=== PATIENT | female | born 1960 | race Caucasian/White ===

== ENCOUNTER 2022-05-23 10:22 | Emergency (ER) | payer BC ==
[~2022-05-23] VITALS: Ht 172.7 cm; Wt 86.2 kg
[2022-05-23 10:32] VITALS: BP_SYST 139
[2022-05-23] MEDS ORDERED: CYCLOBENZAPRINE HCL 10 MG TABLET (FLEXERIL) PO ONE (14:30)
[2022-05-23] MEDS ORDERED: LIDOCAINE PATCH 5% 1 EA TP ONE (14:30)
[2022-05-23] MEDS ORDERED: LIDOCAINE PATCH 5% 1 EA TP SCH (14:30)
[2022-05-23] MEDS ORDERED: KETOROLAC TROMETHAMINE 30 MG VIAL IM ONE (14:30)
[2022-05-23] MEDS ORDERED: CYCL10TA24 PO (15:33)
[2022-05-23] MEDS ORDERED: LIDOINT TP (15:33)
[2022-05-23] MEDS ORDERED: NAPR-688 PO (15:33)
[2022-05-23 15:51] VITALS: BP_SYST 142
[2022-05-24] MEDS ORDERED: LIDOCAINE PATCH 5% 1 EA TP SCH (09:00)
== END 2022-05-23 15:53 | disposition home or self-care (01) ==
LOC: SED 10:22
DX: S16.1XXA Strain of muscle, fascia and tendon at neck level, initial encounter (principal); G44.86 Cervicogenic headache; Z88.5 Allergy status to narcotic agent; Z79.899 Other long term (current) drug therapy; X58.XXXA Exposure to other specified factors, initial encounter; Y93.89 Activity, other specified; Y92.89 Other specified places as the place of occurrence of the external cause; Y99.8 Other external cause status
CPT/HCPCS: 99283; 93005; 96372; J1885